=== PATIENT | female | born 1970 | race Caucasian/White ===

== ENCOUNTER → 2021-01-07 | Outpatient (CLI) | payer OTHER ==
[~2021-01-07] MED LIST: ATOM40CA3 PO; LIRA0.6P SQ; PHEN200T27 PO; SPIR50TA27 PO; ZLP5T PO
--- NOTE | 2021-01-07 17:48 | Diagnostic Imaging Report ---
INDICATION: Lower respiratory infection. EXAMINATION: PA and lateral chest. There are some small patchy alveolar infiltrates in both lungs. There is no effusion or pneumothorax. Heart size and pulmonary vascularity are normal. IMPRESSION: Small patchy alveolar infiltrates consistent with pneumonia. Dictated by: Dictated on workstation # [id number]
== END ==
LOC: RAD 16:41
PROVIDERS: ATTEND Nurse Practitioner Family
DX: R91.8 Other nonspecific abnormal finding of lung field (principal); J45.998 Other asthma; U07.1 COVID-19; M79.18 Myalgia, other site; E66.8 Other obesity; I73.00 Raynaud's syndrome without gangrene
CPT/HCPCS: 71046